=== PATIENT | female | born 1995 | race Caucasian/White ===

== ENCOUNTER → 2017-06-08 | Outpatient (CLI) | payer SELFPAY ==
[2017-06-08 14:50] LABS: CH 31.6; CHCM 33.8; Glucose 98 mg/dL (74-99); HDW 2.14; HGB 12.3 gm/dL (11.4-16.0); MCH 32.1 pg (25.0-35.0); MCHC 34.2 g/dL (31.0-37.0); MCV 93.8 fL (80.0-100.0); Mean Platelet Volume 7.5; Non-African American GFR(MDRD) >60 (>60 ml/min/1.73 sqM); RBC 3.84 m/uL (3.80-5.40); RDW 13.9 % (11.5-15.5); WBC 10.6 k/uL (3.8-10.6)
[2017-06-08 15:21] LABS: Hepatitis B Surface Ag Index 0.06
[2017-06-08 20:32] LABS: Treponemal Ab Non-Reactive (Non-Reactive)
[2017-06-09 03:03] LABS: Toxoplasma Antibody (IgG) <3.0 IU/mL (<7.2)
== END | disposition home or self-care (01) ==
LOC: LABWHC1 14:03
PROVIDERS: ATTEND Obstetrics & Gynecology
DX: O26.812 Pregnancy related exhaustion and fatigue, second trimester (principal); Z3A.00 Weeks of gestation of pregnancy not specified
CPT/HCPCS: 36415; 82565; 82947; 85027; 86762; 86777; 86778; 86780; 86850; 86900; 86901; 87340; 87390

== ENCOUNTER 2017-09-09 19:43 | Outpatient (CLI) | payer SELFPAY ==
[2017-09-09] MEDS ORDERED: ACETAMINOPHEN TAB 325 MG TAB PO PRN (20:05)
[2017-09-09] MEDS: LACTATED RINGERS 1,000 ML IV SCH ×2 (20:23→21:38)
[2017-09-09 23:38] VITALS: BP 130/79; PULSE 124; RESP 18; TEMP 99
--- NOTE | 2017-11-07 06:45 | P.MSEPDOC ---
Presenting Problems - Arrival Data Date of Arrival on Unit: 09/09/17 Time of Arrival on Unit: 19:43 Mode of Transport: Wheelchair Medical History - Information : 4 Para: 3 Term: 2 : 0 Abortions: Spontaneous or Elective: 1 Number of Living Children: 2 - Gestational Age Gestational Age by PHILOMENA (wks/days): 33 Weeks and 1 Days Vital Signs - Temperature Temperature: 99 F Temperature Source: Oral - Pulse Right Brachial Pulse Rate: 124 Pulse Assessment Method: Automatic Cuff - Respirations Respiratory Rate: 18 Oxygen Delivery Method: Room Air O2 Sat by Pulse Oximetry: 98 - Blood Pressure Right Arm Blood Pressure: 130/79 Blood Pressure Mean: 96 Blood Pressure Source: Automatic Cuff Medical Screen Scoring (Post) - Cervical Exam Dilation: Exam Deferred Effacement: Exam Deferred - Uterine Contractions Frequency: N/A Duration: N/A Intensity: N/A - Maternal Vital Signs Maternal Temperature: N/A Maternal Blood Pressure: N/A Signs of Preeclampsia: N/A Maternal Respirations: N/A - Assessment Heart Rate: 155 Heart Rate - NICHD Category: Category I (Normal) = 0 NST: Reactive Position: N/A Station: N/A - Total Score Total Score (Post): 0 - Post Treatment Level of Risk Post Treatment Level of Risk: N/A Physician Notification (Post) - Physician Notified Physician Notified Date: 09/09/17 Physician Notified Time: 19:59 Spoke With: Denzel Calvillo Order Received: Yes - Notification Comment Comment: IV hydration, tylenol Disposition - Disposition OB Disposition: Discharge to home Discharge Date: 09/09/17 Discharge Time: 21:00 I agree with the RN Medical Screening Exam: No Risk & Benefit of care provided described in d/c instruction: No Diagnosis: RELATED CONDITIONS, UNSP, UNSPECIFIED TRIMESTER ( Insufficient information is provided to me to complete this form.)
== END 2017-09-09 21:00 | disposition home or self-care (01) ==
LOC: FBPOP 19:43
PROVIDERS: ATTEND Obstetrics & Gynecology
DX: O26.93 Pregnancy related conditions, unspecified, third trimester (principal); Z3A.33 33 weeks gestation of pregnancy
CPT/HCPCS: 59025; 96360; 99214

== ENCOUNTER 2017-10-19 09:23 | Outpatient (CLI) | payer SELFPAY ==
[2017-10-19 10:25] VITALS: BP 122/84; PULSE 111; RESP 20; TEMP 98.5
--- NOTE | 2017-10-19 19:33 | P.MSEPDOC ---
Presenting Problems - Arrival Data Date of Arrival on Unit: 10/19/17 Time of Arrival on Unit: 09:28 Mode of Transport: Wheelchair - Complaint OB-Reason for Admission/Chief Complaint: Possible Onset of Labor Comment: C/O ctxs since 0700 Medical History - Information : 4 Para: 3 Term: 2 : 0 Abortions: Spontaneous or Elective: 1 Number of Living Children: 2 - Gestational Age Gestational Age by PHILOMENA (wks/days): 38 Weeks and 6 Days - History Complications: No Care Sexually Transmitted Diseases: HSV Review of Systems - Review of Systems Constitutional: No problems Breast: No problems ENT: No problems Cardiovascular: No problems Respiratory: No problems Gastrointestinal: No problems Genitourinary: No problems Musculoskeletal: No problems Neurological: No problems Skin: No problems Vital Signs - Temperature Temperature: 98.5 F Temperature Source: Oral - Pulse Right Brachial Pulse Rate: 111 Pulse Assessment Method: Automatic Cuff - Respirations Respiratory Rate: 20 Oxygen Delivery Method: Room Air - Blood Pressure Right Arm Blood Pressure: 122/84 Blood Pressure Mean: 96 Blood Pressure Source: Automatic Cuff Medical Screen Scoring (Pre) - Cervical Exam Dilation: 4-7 cm = 2 Effacement: More than 50% = 2 Membranes: Intact - Maternal Vital Signs Maternal Temperature: N/A Maternal Blood Pressure: N/A Signs of Preeclampsia: Headache = 1, Nausea/Vomiting = 1 Maternal Respirations: N/A - Pain Assessment Pain Location and Character: Back, Abdomen Pain Scale Used: Numeric (1 - 10) Pain Intensity: 4 Pain Management Goal: 8 Pain Description: Aching, Cramping Pain Radiation Location: n/a Pain Frequency: Constant Pain Duration Units: Hours Pain Behavior: Vocalization Pain Aggravating Factors: None - Maternal Trauma Maternal Trauma: N/A - Assessment Baseline FHR: 135 Heart Rate - NICHD Category: Category I (Normal) = 0 NST: Reactive Position: N/A Station: N/A - Total Score Total Score (Pre): 6 - Level of Risk Level of Risk: Medium (6-9) Physician Notification (Pre) - Physician Notified Physician Notified Date: 10/19/17 Physician Notified Time: 10:10 Physician/Practitioner Notifed:: Cameron Spoke With: Cameron New Order Received: Yes - Notification Comment Comment: Order received to complete SVE in 1 hour and to call with results. Medical Screen Scoring (Post) - Cervical Exam Dilation: 1-3 cm = 1 Effacement: More than 50% = 2 Membranes: Intact - Uterine Contractions Frequency: N/A - Maternal Vital Signs Maternal Temperature: N/A Maternal Blood Pressure: N/A Signs of Preeclampsia: Headache = 1, Nausea/Vomiting = 1 Maternal Respirations: N/A - Pain Assessment Pain Scale Used: Numeric (1 - 10) Pain Intensity: 0 Pain Management Goal: 7 - Maternal Trauma Maternal Trauma: N/A - Assessment Heart Rate: 140 Heart Rate - NICHD Category: Category I (Normal) = 0 NST: Reactive Position: N/A Station: N/A - Total Score Total Score (Post): 5 - Post Treatment Level of Risk Post Treatment Level of Risk: Low (0-5) Physician Notification (Post) - Physician Notified Physician Notified Date: 10/19/17 Physician Notified Time: 11:25 Physician/Practitioner Notified:: Cameron Calvillo Order Received: Yes - Notification Comment Comment: Discharge home Disposition - Disposition OB Disposition: Discharge to home Discharge Date: 10/19/17 Discharge Time: 11:25 I agree with the RN Medical Screening Exam: Yes Risk & Benefit of care provided described in d/c instruction: Yes Diagnosis: FALSE LABOR AT OR AFTER 37 COMPLETED WEEKS OF GESTATION
== END 2017-10-19 11:30 | disposition home or self-care (01) ==
LOC: FBPOP 09:23
PROVIDERS: ATTEND Obstetrics & Gynecology
DX: O47.1 False labor at or after 37 completed weeks of gestation (principal); Z3A.38 38 weeks gestation of pregnancy
CPT/HCPCS: 59025; 99213

== ENCOUNTER 2017-12-07 13:30 | Emergency (ER) | payer OTHER ==
[2017-12-07 13:35] VITALS: RESP 18
[2017-12-07] MEDS ORDERED: ONDANSETRON 4 MG/2 ML VIAL IVP STA (13:47)
[2017-12-07] MEDS ORDERED: SODIUM CHLORIDE 0.9% 500 ML IV STA (13:47)
[2017-12-07] MEDS ORDERED: SODIUM CHLORIDE 0.9% 1,000 ML IV STA (13:47)
[2017-12-07] MEDS ORDERED: KETOROLAC 30 MG/ML 1 ML VIAL IVP STA (14:24)
[2017-12-07] MEDS ORDERED: METOCLOPRAMIDE 5 MG/ML 2 ML VIAL IVP STA (14:24)
--- NOTE | 2017-12-07 14:30 | ED ---
Nausea/Vomiting/Diarrhea HPI - General Chief complaint: Nausea/Vomiting/Diarrhea Stated complaint: vomiting Time Seen by Provider: 12/07/17 13:47 Source: patient, RN notes reviewed Mode of arrival: ambulatory Limitations: no limitations - History of Present Illness Initial comments: 22-year-old female presents emergency Department with chief complaint abdominal pain, nausea vomiting diarrhea. Patient states symptoms started abruptly. Patient states she has diffuse abdominal pain no localized abdominal pain. Patient is 1 month . Patient denies any fever, chills, headache or dizziness. Patient denies any sick contacts denies any dysuria or hematuria. She has no vaginal bleeding or vaginal discharge at this time. Patient denies flank pain states nothing is making her symptoms are better at this time. - Related Data Previous Rx's Medication Instructions Recorded Ondansetron Odt [Zofran Odt] 4 mg PO Q8HR PRN #10 tab 12/07/17 Allergies Allergy/AdvReac Type Severity Reaction Status Date / Time No Known Allergies Allergy Verified 12/07/17 14:12 Review of Systems ROS Statement: Those systems with pertinent positive or pertinent negative responses have been documented in the HPI. ROS Other: All systems not noted in ROS Statement are negative. Past Medical History Past Medical History: No Reported History Additional Past Medical History / Comment(s): anxiety, depression History of Any Multi-Drug Resistant Organisms: None Reported Past Surgical History: No Surgical Hx Reported Additional Past Surgical History / Comment(s): Patient has had a D&C. Past Anesthesia/Blood Transfusion Reactions: No Reported Reaction Past Psychological History: Anxiety, Depression Smoking Status: Current every day smoker Past Alcohol Use History: None Reported Past Drug Use History: None Reported - Past Family History Mother Family Medical History: No Reported History General Exam Limitations: no limitations General appearance: alert, in no apparent distress Head exam: Present: atraumatic, normocephalic, normal inspection Neck exam: Present: normal inspection, full ROM. Absent: tenderness, meningismus, lymphadenopathy Respiratory exam: Present: normal lung sounds bilaterally. Absent: respiratory distress, wheezes, rales, rhonchi, stridor Cardiovascular Exam: Present: regular rate, normal rhythm, normal heart sounds. Absent: systolic murmur, diastolic murmur, rubs, gallop, clicks GI/Abdominal exam: Present: soft, tenderness (Diffuse mild tenderness), normal bowel sounds. Absent: distended, guarding, rebound, rigid Back exam: Absent: CVA tenderness (R), CVA tenderness (L) Skin exam: Present: warm, dry, intact, normal color. Absent: rash Course Vital Signs 12/07/17 12/07/17 13:33 15:08 Temperature 98.9 F 100.3 F H Pulse Rate 101 H 74 Respiratory 18 18 Rate Blood Pressure 122/93 115/67 O2 Sat by Pulse 100 95 Oximetry Medical Decision Making - Medical Decision Making 22-year-old female presented from for nausea vomiting diarrhea. Patient is well -hydrated emergency department to have liters given antiemetics. She states that she does feel improved at this time symptoms have essentially resolved. Patient's labwork reviewed. Patient will be discharged at this time patient agrees to plan. - Lab Data Result diagrams: 12/07/17 13:51 12/07/17 13:51 Lab Results 12/07/17 12/07/17 12/07/17 Range/Units 13:51 13:51 15:00 WBC 9.6 (3.8-10.6) k/uL RBC 4.91 (3.80-5.40) m/uL Hgb 14.4 (11.4-16.0) gm/dL Hct 43.0 (34.0-46.0) % MCV 87.5 (80.0-100.0) fL MCH 29.3 (25.0-35.0) pg MCHC 33.5 (31.0-37.0) g/dL RDW 14.1 (11.5-15.5) % Plt Count 100 L (150-450) k/uL Neutrophils % 87 % Lymphocytes % 5 % Monocytes % 6 % Eosinophils % 1 % Basophils % 0 % Neutrophils # 8.3 H (1.3-7.7) k/uL Lymphocytes # 0.5 L (1.0-4.8) k/uL Monocytes # 0.5 (0-1.0) k/uL Eosinophils # 0.1 (0-0.7) k/uL Basophils # 0.0 (0-0.2) k/uL Sodium 143 (137-145) mmol/L Potassium 4.1 (3.5-5.1) mmol/L Chloride 107 (98-107) mmol/L Carbon Dioxide 21 L (22-30) mmol/L Anion Gap 15 mmol/L BUN 11 (7-17) mg/dL Creatinine 0.87 (0.52-1.04) mg/dL Est GFR (CKD-EPI)AfAm >90 (>60 ml/min/1.73 sqM) Est GFR (CKD-EPI)NonAf >90 (>60 ml/min/1.73 sqM) Glucose 122 H (74-99) mg/dL Calcium 10.3 H (8.4-10.2) mg/dL Total Bilirubin 0.9 (0.2-1.3) mg/dL AST 25 (14-36) U/L ALT 37 (9-52) U/L Alkaline Phosphatase 65 (38-126) U/L Total Protein 7.7 (6.3-8.2) g/dL Albumin 4.8 (3.5-5.0) g/dL Amylase 44 (30-110) U/L Lipase 111 (23-300) U/L Urine Color Yellow Urine Appearance Clear (Clear) Urine pH 7.5 (5.0-8.0) Ur Specific [place] 1.024 (1.001-1.035) Urine Protein 1+ H (Negative) Urine Glucose (UA) Negative (Negative) Urine Ketones 2+ H (Negative) Urine Blood Negative (Negative) Urine Nitrite Negative (Negative) Urine Bilirubin Negative (Negative) Urine Urobilinogen 2.0 (<2.0) mg/dL Ur Leukocyte Esterase Negative (Negative) Urine RBC <1 (0-5) /hpf Urine WBC 1 (0-5) /hpf Ur Squamous Epith Cells 2 (0-4) /hpf Urine Mucus Moderate H (None) /hpf Disposition Clinical Impression: Gastroenteritis Disposition: HOME SELF-CARE Condition: Stable Instructions: Gastroenteritis (ED) Additional Instructions: Please return to the Emergency Department if symptoms worsen or any other concerns. Prescriptions: Ondansetron Odt [Zofran Odt] 4 mg PO Q8HR PRN #10 tab PRN Reason: Nausea Referrals: None,Stated [Primary Care Provider] - 1-2 days Time of Disposition: 15:40
[2017-12-07 14:32] LABS: ALT 37 U/L (9-52); AST 25 U/L (14-36); Albumin 4.8 g/dL (3.5-5.0); Alkaline Phosphatase 65 U/L (38-126); Amylase 44 U/L (30-110); Anion Gap 15 mmol/L; Blood Urea Nitrogen 11 mg/dL (7-17); Calcium 10.3 mg/dL (8.4-10.2); Carbon Dioxide 21 mmol/L (22-30); Chloride 107 mmol/L (98-107); Glucose 122 mg/dL (74-99); Lipase 111 U/L (23-300); Potassium 4.1 mmol/L (3.5-5.1); Sodium 143 mmol/L (137-145); Total Bilirubin 0.9 mg/dL (0.2-1.3); Total Protein 7.7 g/dL (6.3-8.2)
[2017-12-07 14:42] LABS: Basophils % (A) 0 %; Eosinophils # (A) 0.1 k/uL (0-0.7); Eosinophils % (A) 1 %; HGB 14.4 gm/dL (11.4-16.0); Lymphocytes # (A) 0.5 k/uL (1.0-4.8); Lymphocytes % (A) 5 %; MCH 29.3 pg (25.0-35.0); MCHC 33.5 g/dL (31.0-37.0); MCV 87.5 fL (80.0-100.0); Mean Platelet Volume 8.3; Monocytes # (A) 0.5 k/uL (0-1.0); Monocytes % (A) 6 %; Neutrophils # (A) 8.3 k/uL (1.3-7.7); Neutrophils % (A) 87 %; Platelet Count 100 k/uL (150-450); RBC 4.91 m/uL (3.80-5.40); RDW 14.1 % (11.5-15.5); WBC 9.6 k/uL (3.8-10.6)
[2017-12-07] MEDS ORDERED: SODIUM CHLORIDE 0.9% 1,000 ML IV ONE (14:56)
[2017-12-07 15:09] VITALS: BP 115/67; PULSE 74; TEMP 100.3
[2017-12-07] MEDS ORDERED: ACETAMINOPHEN TAB 325 MG TAB PO STA (15:09)
[2017-12-07 15:21] LABS: Appearance,Urine Clear (Clear); Bilirubin,Urine Negative (Negative); Blood,Urine Negative (Negative); Color,Urine Yellow; Glucose,Urine (UA) Negative (Negative); Ketones,Urine 2+ (Negative); Leukocyte Esterase,Urine Negative (Negative); Mucus,Urine Moderate /hpf; Nitrite,Urine Negative (Negative); PH, Urine 7.5 (5.0-8.0); Protein,Urine 1+ (Negative); RBC,Urine <1 /hpf (0-5); Specific Gravity,Urine 1.024 (1.001-1.035); Squamous Epithelial Cell,Urine 2 /hpf (0-4); WBC,Urine 1 /hpf (0-5)
== END 2017-12-07 15:47 | disposition home or self-care (01) ==
LOC: EC 13:30
DX: K52.9 Noninfective gastroenteritis and colitis, unspecified (principal); F17.200 Nicotine dependence, unspecified, uncomplicated
CPT/HCPCS: 99284; 96374; 96375 ×2; 96361; 36415; 80053; 82150; 83690; 85025; 81001; J2765; J2405; J1885

== ENCOUNTER 2018-02-22 14:50 | Emergency (ER) | payer OTHER ==
[2018-02-22 15:39] VITALS: BP 134/86; PULSE 95; RESP 16; TEMP 98
[2018-02-22 16:09] LABS: Appearance,Urine Cloudy (Clear); Bacteria,Urine Moderate /hpf; Bilirubin,Urine Negative (Negative); Blood,Urine Small (Negative); Color,Urine Yellow; Glucose,Urine (UA) Negative (Negative); Ketones,Urine Trace (Negative); Leukocyte Esterase,Urine Large (Negative); Mucus,Urine Occasional /hpf; Nitrite,Urine Positive (Negative); PH, Urine 6.5 (5.0-8.0); Protein,Urine 1+ (Negative); RBC,Urine 15 /hpf (0-5); Specific Gravity,Urine 1.008 (1.001-1.035); Squamous Epithelial Cell,Urine 3 /hpf (0-4); Urobilinogen,Urine <2.0 mg/dL (<2.0); WBC,Urine 138 /hpf (0-5)
--- NOTE | 2018-02-22 16:41 | ED ---
Female Urogenital HPI - General Chief complaint: Urogenital Stated complaint: back pain/painful urination Time Seen by Provider: 02/22/18 16:24 Source: patient, RN notes reviewed Mode of arrival: ambulatory Limitations: no limitations - History of Present Illness Initial comments: This is a 22-year-old female presents to the emergency department with chief complaint of painful urination. Patient states on Tuesday she began having dysuria and increased frequency of urination. She states that yesterday she developed bilateral flank pain. She states that she has felt febrile but has not had a thermometer to record her temperature. Denies chills, nausea or vomiting, abdominal pain, constipation or diarrhea. Denies seeing any blood in her urine. Complains of suprapubic discomfort during urination. - Related Data Previous Rx's Medication Instructions Recorded Sulfamethox-Tmp 800-160Mg [Bactrim 1 tab PO Q12HR #20 tab 02/22/18 DS 800-160 mg] Allergies Allergy/AdvReac Type Severity Reaction Status Date / Time No Known Allergies Allergy Verified 02/22/18 15:39 Review of Systems ROS Statement: Those systems with pertinent positive or pertinent negative responses have been documented in the HPI. ROS Other: All systems not noted in ROS Statement are negative. Past Medical History Past Medical History: No Reported History Additional Past Medical History / Comment(s): anxiety, depression History of Any Multi-Drug Resistant Organisms: None Reported Past Surgical History: No Surgical Hx Reported Additional Past Surgical History / Comment(s): Patient has had a D&C. Past Anesthesia/Blood Transfusion Reactions: No Reported Reaction Past Psychological History: Anxiety, Depression Smoking Status: Current every day smoker Past Alcohol Use History: None Reported Past Drug Use History: None Reported - Past Family History Mother Family Medical History: No Reported History General Exam - General Exam Comments Initial Comments: General: Awake and alert, well-developed; in no apparent distress. HEENT: Head atraumatic, normocephalic. Pupils are equal, round and reactive to light. Extraocular movements intact. Oropharynx moist without erythema or exudate. Neck: Supple. Normal ROM. Cardiovascular: Regular rate and rhythm. No murmurs, rubs or gallops. Chest symmetrical. Respiratory: Lungs clear to auscultation bilaterally. No wheezes, rales or rhonchi. Normal respiratory effort with no use of accessory muscles. Abdomen: Soft, non-tender, non-distended. No rigidity, rebound or guarding. Normal bowel sounds in all 4 quadrants. No bilateral CVA tenderness on palpation. Musculoskeletal: Normal ROM, no tenderness bilateral upper and lower extremities. Ambulating normally. Skin: [place], warm and dry without rashes or lesions. Neurological: Alert and oriented x3. CN II-XII grossly intact. Speech is fluent and answers are appropriate. No focal neuro deficits. Psychiatric: Normal mood and affect. No overt signs of depression or anxiety noted. Limitations: no limitations Course Vital Signs 02/22/18 15:37 Temperature 98.0 F Pulse Rate 95 Respiratory 16 Rate Blood Pressure 134/86 O2 Sat by Pulse 100 Oximetry Medical Decision Making - Medical Decision Making This is a 22-year-old female presents to the emergency department with chief complaint of dysuria. She also complains of increased frequency and suprapubic discomfort during urination. She also complains of bilateral flank pain. Vital signs are stable and patient is afebrile. She denies abdominal pain, nausea or vomiting. UA was obtained and revealed no trace ketones, small blood , positive nitrites, large leukocyte esterase, 15 red blood cells and 138 white blood cells, moderate bacteria. Patient will be treated for acute cystitis with Bactrim. Return parameters were discussed. Patient will be discharged home at this time. She is in agreement with plan and voices understanding. All questions answered. - Lab Data Lab Results 02/22/18 Range/Units 15:40 Urine Color Yellow Urine Appearance Cloudy H (Clear) Urine pH 6.5 (5.0-8.0) Ur Specific [place] 1.008 (1.001-1.035) Urine Protein 1+ H (Negative) Urine Glucose (UA) Negative (Negative) Urine Ketones Trace H (Negative) Urine Blood Small H (Negative) Urine Nitrite Positive H (Negative) Urine Bilirubin Negative (Negative) Urine Urobilinogen <2.0 (<2.0) mg/dL Ur Leukocyte Esterase Large H (Negative) Urine RBC 15 H (0-5) /hpf Urine WBC 138 H (0-5) /hpf Urine WBC Clumps Many H (None) /hpf Ur Squamous Epith Cells 3 (0-4) /hpf Urine Bacteria Moderate H (None) /hpf Urine Mucus Occasional H (None) /hpf Disposition Clinical Impression: Urinary tract infection Disposition: HOME SELF-CARE Condition: Good Instructions: Urinary Tract Infection in Women (ED) Additional Instructions: Please take medications as prescribed. Please follow up with primary care provider within 1-2 days. Return to emergency department if symptoms should worsen or any concerns arise. Prescriptions: Sulfamethox-Tmp 800-160Mg [Bactrim DS 800-160 mg] 1 tab PO Q12HR #20 tab Is patient prescribed a controlled substance at d/c from ED?: No Referrals: None,Stated [Primary Care Provider] - 1-2 days Time of Disposition: 16:41
[2018-02-22] MEDS ORDERED: SULFAMETHOX-TMP 800-160MG 1 EACH TAB PO STA (16:49)
== END 2018-02-22 16:45 | disposition home or self-care (01) ==
LOC: EC 14:50
DX: N30.00 Acute cystitis without hematuria (principal); F17.200 Nicotine dependence, unspecified, uncomplicated
CPT/HCPCS: 81001; 99284

== ENCOUNTER 2018-02-24 02:25 | Emergency (ER) | payer OTHER ==
[2018-02-24 02:30] VITALS: RESP 18
[2018-02-24] MEDS ORDERED: SODIUM CHLORIDE 0.9% 1,000 ML IV ONE (02:57)
[2018-02-24 03:07] LABS: Basophils % (A) 0 %; Eosinophils # (A) 0.1 k/uL (0-0.7); Eosinophils % (A) 2 %; HCT 40.9 % (34.0-46.0); HGB 13.9 gm/dL (11.4-16.0); Lymphocytes # (A) 0.5 k/uL (1.0-4.8); Lymphocytes % (A) 9 %; MCH 30.6 pg (25.0-35.0); MCV 90.2 fL (80.0-100.0); Mean Platelet Volume 6.9; Monocytes # (A) 0.4 k/uL (0-1.0); Monocytes % (A) 7 %; Neutrophils # (A) 4.7 k/uL (1.3-7.7); Neutrophils % (A) 80 %; Platelet Count 164 k/uL (150-450); RBC 4.53 m/uL (3.80-5.40); WBC 5.9 k/uL (3.8-10.6)
[2018-02-24 03:16] LABS: ALT 42 U/L (9-52); AST 30 U/L (14-36); Albumin 4.1 g/dL (3.5-5.0); Alkaline Phosphatase 49 U/L (38-126); Amylase 33 U/L (30-110); Anion Gap 13 mmol/L; Blood Urea Nitrogen 10 mg/dL (7-17); Calcium 9.4 mg/dL (8.4-10.2); Carbon Dioxide 23 mmol/L (22-30); Chloride 107 mmol/L (98-107); Glucose 96 mg/dL (74-99); Lipase 45 U/L (23-300); Potassium 3.7 mmol/L (3.5-5.1); Sodium 143 mmol/L (137-145); Total Bilirubin 0.2 mg/dL (0.2-1.3); Total Protein 6.6 g/dL (6.3-8.2)
[2018-02-24 03:27] LABS: Appearance,Urine Turbid (Clear); Bacteria,Urine Few /hpf; Bilirubin,Urine Negative (Negative); Blood,Urine Moderate (Negative); Color,Urine Yellow; Glucose,Urine (UA) Negative (Negative); Ketones,Urine 1+ (Negative); Leukocyte Esterase,Urine Large (Negative); Mucus,Urine Rare /hpf; Nitrite,Urine Negative (Negative); Protein,Urine 3+ (Negative); RBC,Urine 133 /hpf (0-5); Specific Gravity,Urine 1.021 (1.001-1.035); Squamous Epithelial Cell,Urine 1 /hpf (0-4); Urobilinogen,Urine <2.0 mg/dL (<2.0); WBC,Urine >182 /hpf (0-5)
[2018-02-24] MEDS ORDERED: cefTRIAXone IN SWFI 1,000 MG/10 ML SYRINGE IVP STA (03:45)
--- NOTE | 2018-02-24 04:36 | CT ---
EXAM: CT Abdomen and Pelvis Without Intravenous Contrast CLINICAL HISTORY: Pain TECHNIQUE: Axial computed tomography images of the abdomen and pelvis without intravenous contrast. CTDI is mGy and DLP is mGy-cm. This CT exam was performed using one or more of the following dose reduction techniques: automated exposure control, adjustment of the mA and/or kV according to patient size, and/or use of iterative reconstruction technique. COMPARISON: No relevant prior studies available. FINDINGS: Lung bases: Unremarkable. No mass. No consolidation. ABDOMEN: Liver: Unremarkable. Gallbladder and bile ducts: Unremarkable. No calcified stones. No ductal dilation. Pancreas: Unremarkable. No ductal dilation. Spleen: Unremarkable. No splenomegaly. Adrenals: Unremarkable. No mass. Kidneys and ureters: Unremarkable. No obstructing stones. No hydronephrosis. Stomach and bowel: Unremarkable. No obstruction. No mucosal thickening. PELVIS: Appendix: No findings to suggest acute appendicitis. Bladder: Not completely distended bladder wall appears be somewhat thick possible cholecystitis cannot be excluded. Reproductive: Unremarkable as visualized. IUD appears be within the endometrial canal. ABDOMEN and PELVIS: Intraperitoneal space: Unremarkable. No free air. No significant fluid collection. Bones/joints: No acute fracture. No dislocation. Soft tissues: Unremarkable. Vasculature: Unremarkable. No abdominal aortic aneurysm. Lymph nodes: Unremarkable. No enlarged lymph nodes. IMPRESSION: No acute abnormality demonstrated in the abdomen or pelvis. The bladder wall appears be thickened although this incompletely distended. Clinical correlation is required.
[2018-02-24] MEDS ORDERED: CIPROFLOXACIN HCL 500 MG TAB PO STA (05:15)
[2018-02-24] MEDS ORDERED: KETOROLAC 30 MG/ML 1 ML VIAL IVP STA (05:15)
[2018-02-24] MEDS ORDERED: PHENAZOPYRIDINE 100 MG TAB PO STA (05:15)
--- NOTE | 2018-02-24 05:16 | ED ---
Abdominal Pain HPI - General Chief Complaint: Abdominal Pain Stated Complaint: back pain Time Seen by Provider: 02/24/18 02:57 Source: patient, RN notes reviewed, old records reviewed Mode of arrival: ambulatory Limitations: no limitations - History of Present Illness Initial Comments: Patient is a 22 year old female with CC of dysuria and back pain. She was diagnosed with UTI and been taking antibiotics for one day. REports nausea, vomiting, fever and chills. - Related Data Previous Rx's Medication Instructions Recorded Sulfamethox-Tmp 800-160Mg [Bactrim 1 tab PO Q12HR #20 tab 02/22/18 DS 800-160 mg] Ciprofloxacin HCl [Cipro] 500 mg PO Q12HR 10 Days tab 02/24/18 Phenazopyridine [Pyridium] 200 mg PO TID #9 tablet 02/24/18 Allergies Allergy/AdvReac Type Severity Reaction Status Date / Time No Known Allergies Allergy Verified 02/22/18 15:39 Review of Systems ROS Statement: Those systems with pertinent positive or pertinent negative responses have been documented in the HPI. ROS Other: All systems not noted in ROS Statement are negative. Past Medical History Past Medical History: No Reported History Additional Past Medical History / Comment(s): anxiety, depression History of Any Multi-Drug Resistant Organisms: None Reported Past Surgical History: No Surgical Hx Reported Additional Past Surgical History / Comment(s): Patient has had a D&C. Past Anesthesia/Blood Transfusion Reactions: No Reported Reaction Past Psychological History: Anxiety, Depression Smoking Status: Current every day smoker Past Alcohol Use History: None Reported Past Drug Use History: None Reported - Past Family History Mother Family Medical History: No Reported History General Exam - General Exam Comments Initial Comments: 22 year old female, alert oriented. No distress. Limitations: no limitations General appearance: alert, in no apparent distress Head exam: Present: atraumatic, normocephalic, normal inspection Eye exam: Present: normal appearance, PERRL, EOMI. Absent: scleral icterus, conjunctival injection, periorbital swelling ENT exam: Present: normal exam, mucous membranes moist Neck exam: Present: normal inspection. Absent: tenderness, meningismus, lymphadenopathy Respiratory exam: Present: normal lung sounds bilaterally. Absent: respiratory distress, wheezes, rales, rhonchi, stridor Cardiovascular Exam: Present: regular rate, normal rhythm, normal heart sounds. Absent: systolic murmur, diastolic murmur, rubs, gallop, clicks GI/Abdominal exam: Present: soft, tenderness (suprapubic and left cva), normal bowel sounds. Absent: distended, guarding, rebound, rigid Extremities exam: Present: normal inspection, full ROM, normal capillary refill. Absent: tenderness, pedal edema, joint swelling, calf tenderness Back exam: Present: normal inspection Neurological exam: Present: alert, oriented X3, CN II-XII intact Psychiatric exam: Present: normal affect, normal mood Skin exam: Present: warm, dry, intact, normal color. Absent: rash Course Vital Signs 02/24/18 02/24/18 02/24/18 02:26 03:30 05:48 Temperature 98.8 F 98.4 F 98.0 F Pulse Rate 125 H 78 88 Respiratory 18 18 18 Rate Blood Pressure 125/81 134/83 124/75 O2 Sat by Pulse 98 100 100 Oximetry Medical Decision Making - Medical Decision Making 22 year old presents with dysuria, left back pain, fevers, chills and vomting. LAbs show evidence of UTI with hematuria. She was started on bactrim 2 days ago with no relief. Urine culture was not obtained at that time. Did give patient rocephin, was concern for possible stone due to pain and tenderness of left CVA. Patient given CT scan without contrast, no stones, evidence of bladder thickening. Patient felt much better. Will DC with different antibiotic and PCP follow up. - Lab Data Result diagrams: 02/24/18 02:51 02/24/18 02:51 Lab Results 02/24/18 02/24/18 02/24/18 Range/Units 02:51 02:51 02:51 WBC 5.9 (3.8-10.6) k/uL RBC 4.53 (3.80-5.40) m/uL Hgb 13.9 (11.4-16.0) gm/dL Hct 40.9 (34.0-46.0) % MCV 90.2 (80.0-100.0) fL MCH 30.6 (25.0-35.0) pg MCHC 34.0 (31.0-37.0) g/dL RDW 13.0 (11.5-15.5) % Plt Count 164 (150-450) k/uL Neutrophils % 80 % Lymphocytes % 9 % Monocytes % 7 % Eosinophils % 2 % Basophils % 0 % Neutrophils # 4.7 (1.3-7.7) k/uL Lymphocytes # 0.5 L (1.0-4.8) k/uL Monocytes # 0.4 (0-1.0) k/uL Eosinophils # 0.1 (0-0.7) k/uL Basophils # 0.0 (0-0.2) k/uL Sodium 143 (137-145) mmol/L Potassium 3.7 (3.5-5.1) mmol/L Chloride 107 (98-107) mmol/L Carbon Dioxide 23 (22-30) mmol/L Anion Gap 13 mmol/L BUN 10 (7-17) mg/dL Creatinine 0.90 (0.52-1.04) mg/dL Est GFR (CKD-EPI)AfAm >90 (>60 ml/min/1.73 sqM) Est GFR (CKD-EPI)NonAf >90 (>60 ml/min/1.73 sqM) Glucose 96 (74-99) mg/dL Calcium 9.4 (8.4-10.2) mg/dL Total Bilirubin 0.2 (0.2-1.3) mg/dL AST 30 (14-36) U/L ALT 42 (9-52) U/L Alkaline Phosphatase 49 (38-126) U/L Total Protein 6.6 (6.3-8.2) g/dL Albumin 4.1 (3.5-5.0) g/dL Amylase 33 (30-110) U/L Lipase 45 (23-300) U/L Urine Color Yellow Urine Appearance Turbid H (Clear) Urine pH 7.0 (5.0-8.0) Ur Specific [place] 1.021 (1.001-1.035) Urine Protein 3+ H (Negative) Urine Glucose (UA) Negative (Negative) Urine Ketones 1+ H (Negative) Urine Blood Moderate H (Negative) Urine Nitrite Negative (Negative) Urine Bilirubin Negative (Negative) Urine Urobilinogen <2.0 (<2.0) mg/dL Ur Leukocyte Esterase Large H (Negative) Urine RBC 133 H (0-5) /hpf Urine WBC >182 H (0-5) /hpf Urine WBC Clumps Few H (None) /hpf Ur Squamous Epith Cells 1 (0-4) /hpf Urine Bacteria Few H (None) /hpf Urine Mucus Rare H (None) /hpf Urine HCG, Qual (Not Detectd) 02/24/18 Range/Units 02:51 WBC (3.8-10.6) k/uL RBC (3.80-5.40) m/uL Hgb (11.4-16.0) gm/dL Hct (34.0-46.0) % MCV (80.0-100.0) fL MCH (25.0-35.0) pg MCHC (31.0-37.0) g/dL RDW (11.5-15.5) % Plt Count (150-450) k/uL Neutrophils % % Lymphocytes % % Monocytes % % Eosinophils % % Basophils % % Neutrophils # (1.3-7.7) k/uL Lymphocytes # (1.0-4.8) k/uL Monocytes # (0-1.0) k/uL Eosinophils # (0-0.7) k/uL Basophils # (0-0.2) k/uL Sodium (137-145) mmol/L Potassium (3.5-5.1) mmol/L Chloride (98-107) mmol/L Carbon Dioxide (22-30) mmol/L Anion Gap mmol/L BUN (7-17) mg/dL Creatinine (0.52-1.04) mg/dL Est GFR (CKD-EPI)AfAm (>60 ml/min/1.73 sqM) Est GFR (CKD-EPI)NonAf (>60 ml/min/1.73 sqM) Glucose (74-99) mg/dL Calcium (8.4-10.2) mg/dL Total Bilirubin (0.2-1.3) mg/dL AST (14-36) U/L ALT (9-52) U/L Alkaline Phosphatase (38-126) U/L Total Protein (6.3-8.2) g/dL Albumin (3.5-5.0) g/dL Amylase (30-110) U/L Lipase (23-300) U/L Urine Color Urine Appearance (Clear) Urine pH (5.0-8.0) Ur Specific [place] (1.001-1.035) Urine Protein (Negative) Urine Glucose (UA) (Negative) Urine Ketones (Negative) Urine Blood (Negative) Urine Nitrite (Negative) Urine Bilirubin (Negative) Urine Urobilinogen (<2.0) mg/dL Ur Leukocyte Esterase (Negative) Urine RBC (0-5) /hpf Urine WBC (0-5) /hpf Urine WBC Clumps (None) /hpf Ur Squamous Epith Cells (0-4) /hpf Urine Bacteria (None) /hpf Urine Mucus (None) /hpf Urine HCG, Qual Not Detected (Not Detectd) - Radiology Data Radiology results: report reviewed No acute abdomen or pelvis on CT. Evidnece of thickened bladder. Disposition Clinical Impression: UTI (urinary tract infection) Disposition: HOME SELF-CARE Condition: Good Instructions: Urinary Tract Infection in Women (ED) Additional Instructions: Patient has follow-up with primary care provider. Return to emergency department if any alarming signs or symptoms occur. Prescriptions: Ciprofloxacin HCl [Cipro] 500 mg PO Q12HR 10 Days tab Phenazopyridine [Pyridium] 200 mg PO TID #9 tablet Is patient prescribed a controlled substance at d/c from ED?: No When asked, does pt state using other controlled substances?: No If prescribed controlled substance>3 days was MAPS reviewed?: No If opioid is for acute pain is fill amount 7 days or less?: No If Rx opioid, was Start Talking consent form obtained?: No Referrals: None,Stated [Primary Care Provider] - 1-2 days
[2018-02-24 05:50] VITALS: BP 124/75; PULSE 88; TEMP 98
== END 2018-02-24 05:50 | disposition home or self-care (01) ==
LOC: EC 02:25
DX: N39.0 Urinary tract infection, site not specified (principal); F17.200 Nicotine dependence, unspecified, uncomplicated
CPT/HCPCS: 36415; 80053; 82150; 83690; 85025; 81001; 81025; 87040; 87086; 87077; 87186; 74176; 99285; 96374; 96375; 96361; J0696; J1885

== ENCOUNTER 2019-08-20 07:29 | Emergency (ER) | payer OTHER ==
[2019-08-20 07:38] VITALS: RESP 18; TEMP 98.6
[2019-08-20] MEDS ORDERED: ACETAMINOPHEN TAB 325 MG TAB PO STA (07:49)
--- NOTE | 2019-08-20 07:53 | ED ---
Abdominal Pain HPI - General Chief Complaint: Abdominal Pain Stated Complaint: poss UTI/19 wks preg Time Seen by Provider: 08/20/19 07:40 Source: patient, RN notes reviewed Mode of arrival: ambulatory Limitations: no limitations - History of Present Illness Initial Comments: 24-year-old female presents emergency Department chief complaint of lower abdomi nal pain, dysuria. Patient believes that she has urinary tract infection. Patient is A0 and currently [address] Barnes. Patient states she does have mild vaginal discharge but is normal white discharge denies any bleeding. Denies any cramping or contraction type pain. Patient denies any flank pain, fever or chills. She did have a sore back to days ago. - Related Data Home Medications Medication Instructions Recorded Confirmed Pnv,Calcium 72/Iron/Folic Acid 1 tab PO DAILY 08/20/19 08/20/19 [ Plus Tablet] Previous Rx's Medication Instructions Recorded Cephalexin [Keflex] 500 mg PO Q8HR #21 cap 08/20/19 Allergies Allergy/AdvReac Type Severity Reaction Status Date / Time No Known Allergies Allergy Verified 08/20/19 08:21 Review of Systems ROS Statement: Those systems with pertinent positive or pertinent negative responses have been documented in the HPI. ROS Other: All systems not noted in ROS Statement are negative. Past Medical History Past Medical History: No Reported History Additional Past Medical History / Comment(s): anxiety, depression History of Any Multi-Drug Resistant Organisms: None Reported Past Surgical History: No Surgical Hx Reported Additional Past Surgical History / Comment(s): Patient has had a D&C. Past Anesthesia/Blood Transfusion Reactions: No Reported Reaction Past Psychological History: No Psychological Hx Reported, Anxiety, Depression Smoking Status: Current every day smoker Past Alcohol Use History: None Reported Past Drug Use History: None Reported - Past Family History Mother Family Medical History: No Reported History General Exam Limitations: no limitations General appearance: alert, in no apparent distress Head exam: Present: atraumatic, normocephalic, normal inspection Eye exam: Present: normal appearance, PERRL, EOMI. Absent: scleral icterus, conjunctival injection, periorbital swelling ENT exam: Present: normal exam, normal oropharynx, mucous membranes moist Neck exam: Present: normal inspection, full ROM. Absent: tenderness, meningismus, lymphadenopathy Respiratory exam: Present: normal lung sounds bilaterally. Absent: respiratory distress, wheezes, rales, rhonchi, stridor Cardiovascular Exam: Present: regular rate, normal rhythm, normal heart sounds. Absent: systolic murmur, diastolic murmur, rubs, gallop, clicks GI/Abdominal exam: Present: soft, tenderness (Mild suprapubic), normal bowel sounds. Absent: distended, guarding, rebound, rigid Back exam: Absent: CVA tenderness (R), CVA tenderness (L) Course Vital Signs 08/20/19 07:34 Temperature 98.6 F Pulse Rate 111 H Respiratory 18 Rate Blood Pressure 134/78 Medical Decision Making - Medical Decision Making Urinalysis was obtained which shows evidence of urinary tract infection. Patient was given Rocephin 1 g IM in the emergency department. Patient be discharged on Keflex. Return parameters discussed. - Lab Data Lab Results 08/20/19 Range/Units 07:51 Urine Color Light Yellow Urine Appearance Cloudy H (Clear) Urine pH 6.5 (5.0-8.0) Ur Specific [place] 1.011 (1.001-1.035) Urine Protein 1+ H (Negative) Urine Glucose (UA) Negative (Negative) Urine Ketones Negative (Negative) Urine Blood Small H (Negative) Urine Nitrite Negative (Negative) Urine Bilirubin Negative (Negative) Urine Urobilinogen <2.0 (<2.0) mg/dL Ur Leukocyte Esterase Large H (Negative) Urine RBC 15 H (0-5) /hpf Urine WBC 157 H (0-5) /hpf Urine WBC Clumps Many H (None) /hpf Ur Squamous Epith Cells <1 (0-4) /hpf Urine Bacteria Rare H (None) /hpf Urine Mucus Rare H (None) /hpf Disposition Clinical Impression: UTI in Disposition: HOME SELF-CARE Condition: Stable Instructions (If sedation given, give patient instructions): Urinary Tract Infection in (ED) Additional Instructions: Please return to the Emergency Department if symptoms worsen or any other concerns. Prescriptions: Cephalexin [Keflex] 500 mg PO Q8HR #21 cap Is patient prescribed a controlled substance at d/c from ED?: No Referrals: None,Stated [Primary Care Provider] - 1-2 days Valerie Barnes DO [Doctor of Osteopathic Medicine] - 1-2 days Time of Disposition: 08:27
[2019-08-20 08:14] LABS: Appearance,Urine Cloudy (Clear); Bacteria,Urine Rare /hpf; Bilirubin,Urine Negative (Negative); Blood,Urine Small (Negative); Color,Urine Light Yellow; Glucose,Urine (UA) Negative (Negative); Ketones,Urine Negative (Negative); Leukocyte Esterase,Urine Large (Negative); Mucus,Urine Rare /hpf; Nitrite,Urine Negative (Negative); PH, Urine 6.5 (5.0-8.0); Protein,Urine 1+ (Negative); RBC,Urine 15 /hpf (0-5); Specific Gravity,Urine 1.011 (1.001-1.035); Squamous Epithelial Cell,Urine <1 /hpf (0-4); Urobilinogen,Urine <2.0 mg/dL (<2.0); WBC,Urine 157 /hpf (0-5)
[2019-08-20] MEDS ORDERED: cefTRIAXone 1,000 MG VIAL (IM USE) IM STA (08:24)
[2019-08-20 09:23] VITALS: BP 112/64; PULSE 84
== END 2019-08-20 09:41 | disposition home or self-care (01) ==
LOC: EC 07:29
DX: O23.42 Unspecified infection of urinary tract in pregnancy, second trimester (principal); O99.332 Smoking (tobacco) complicating pregnancy, second trimester; F17.200 Nicotine dependence, unspecified, uncomplicated; Z3A.19 19 weeks gestation of pregnancy
CPT/HCPCS: 81001; 87086; 87077; 87186; 96372; 99284; J0696; 96374

== ENCOUNTER 2019-12-16 09:02 | Emergency (ER) | payer OTHER ==
[2019-12-16 09:09] VITALS: BP 128/86; PULSE 116; RESP 18; TEMP 98.6
[2019-12-16] MEDS ORDERED: ACETAMINOPHEN TAB 500 MG TAB PO STA (09:22)
--- NOTE | 2019-12-16 09:35 | ED ---
URI HPI - General Chief Complaint: Upper Respiratory Infection Stated Complaint: 35wks preg, fever, cough Time Seen by Provider: 12/16/19 09:11 Source: patient, RN notes reviewed, old records reviewed Mode of arrival: ambulatory Limitations: no limitations - History of Present Illness Initial Comments: This Patient is a 24-year-old female who presents emergency department today for concern for sore throat, fever last night, cough. Patient is currently 35 weeks . Patient is a female. Patient denies any abdominal pain and vaginal bleeding or discharge. She reports no travel history. She states that she's been attempting to self or 19 due to recent state mandates. Patient reports that she's had no known exposure to anyone with a positive cocaine test. She reports her children have otherwise been well. Patient states that she has no chest pain. She reports it's and somewhat mucousy cough and feels like gas through radiation to her throat. She denies any other complaints. - Related Data Home Medications Medication Instructions Recorded Confirmed Pnv,Calcium 72/Iron/Folic Acid 1 tab PO DAILY 08/20/19 08/20/19 [ Plus Tablet] Previous Rx's Medication Instructions Recorded Cephalexin [Keflex] 500 mg PO Q8HR #21 cap 08/20/19 Acetaminophen [Tylenol] 500 mg PO Q4-6H PRN #20 tab 12/16/19 Azithromycin [Zithromax] 0 mg PO DIRECTED #6 tab 12/16/19 Allergies Allergy/AdvReac Type Severity Reaction Status Date / Time No Known Allergies Allergy Verified 12/16/19 09:09 Review of Systems ROS Statement: Those systems with pertinent positive or pertinent negative responses have been documented in the HPI. ROS Other: All systems not noted in ROS Statement are negative. Past Medical History Past Medical History: No Reported History Additional Past Medical History / Comment(s): anxiety, depression History of Any Multi-Drug Resistant Organisms: None Reported Past Surgical History: No Surgical Hx Reported Additional Past Surgical History / Comment(s): Patient has had a D&C. Past Anesthesia/Blood Transfusion Reactions: No Reported Reaction Past Psychological History: No Psychological Hx Reported, Anxiety, Depression Smoking Status: Current every day smoker Past Alcohol Use History: None Reported Past Drug Use History: None Reported - Past Family History Mother Family Medical History: No Reported History General Exam - General Exam Comments Initial Comments: 24-year-old female. Alert and oriented 3. Limitations: no limitations General appearance: alert, in no apparent distress Head exam: Present: atraumatic, normocephalic, normal inspection Eye exam: Present: normal appearance, PERRL, EOMI. Absent: scleral icterus, conjunctival injection, periorbital swelling ENT exam: Present: normal exam, mucous membranes moist Neck exam: Present: normal inspection. Absent: tenderness, meningismus, lymphadenopathy Respiratory exam: Present: normal lung sounds bilaterally, other (Patient has a wet sounding cough. Otherwise lungs are clear and lower lung field.). Absent: respiratory distress, wheezes, rales, rhonchi, stridor Cardiovascular Exam: Present: regular rate, normal rhythm, normal heart sounds. Absent: systolic murmur, diastolic murmur, rubs, gallop, clicks GI/Abdominal exam: Present: soft, normal bowel sounds, other (Temperature over abdomen consistent with 35 weeks . Patient has heart tones were noted to be 1 50 bpm.). Absent: distended, tenderness, guarding, rebound, rigid Extremities exam: Present: normal inspection, full ROM, normal capillary refill. Absent: tenderness, pedal edema, joint swelling, calf tenderness Back exam: Present: normal inspection Neurological exam: Present: alert, oriented X3, CN II-XII intact Psychiatric exam: Present: normal affect, normal mood Course Vital Signs 12/16/19 09:05 Temperature 98.6 F Pulse Rate 116 H Respiratory 18 Rate Blood Pressure 128/86 O2 Sat by Pulse 98 Oximetry Medical Decision Making - Medical Decision Making This patient's a 24-year-old female who presents today with fever and cough. Patient is currently 35 weeks . She has no travel history or exposure to known Covid contact. Patient was given Tylenol emergency department. There heart tones were obtained and 1 50 bpm. Patient has no abdominal pain or discharge. At this time discussed to avoid radiation will await chest x-ray at this time but otherwise treat the Patient for bronchitis with azithromycin to cover for atypical bacteria should've some a wet sounding cough. Discussed dosing Tylenol. I discussed she does not meet Covid swab criteria at this time but I did discuss that that still could be a possibility. I instructed the Patient to practice self quarentine for the next 14 days. Patient understands treatment plan will comply. Disposition Clinical Impression: Cough, Third trimester Disposition: HOME SELF-CARE Condition: Good Instructions (If sedation given, give patient instructions): Upper Respiratory Infection (ED) Additional Instructions: Please use medication as discussed. Patient should self quarentine for 14 days. Rest, remain hydrated. Use tylenol for fever or pain, and benadryl for congestion. Please follow up with family doctor if symptoms have not improved over the next two days. Please return to the emergency room if your symptoms increase or worsen or for any other concerns. Prescriptions: Acetaminophen [Tylenol] 500 mg PO Q4-6H PRN #20 tab PRN Reason: Fever Azithromycin [Zithromax] 0 mg PO DIRECTED #6 tab Is patient prescribed a controlled substance at d/c from ED?: No Referrals: None,Stated [Primary Care Provider] - 1-2 days Time of Disposition: 09:33
== END 2019-12-16 09:46 | disposition home or self-care (01) ==
LOC: EC 09:02
DX: O99.89 Other specified diseases and conditions complicating pregnancy, childbirth and the puerperium (principal); R05 Cough; R50.9 Fever, unspecified; O99.333 Smoking (tobacco) complicating pregnancy, third trimester; F17.200 Nicotine dependence, unspecified, uncomplicated; Z98.890 Other specified postprocedural states; Z3A.35 35 weeks gestation of pregnancy
CPT/HCPCS: 99283

== ENCOUNTER 2020-01-10 06:15 | Inpatient (IN) | payer OTHER ==
[2020-01-08 10:41] VITALS: BMI 28.3
[2020-01-18] MEDS ORDERED: METHYLERGONOVINE 0.2 MG/ML 1 ML AMP IM PRN (07:09)
[2020-01-18] MEDS ORDERED: OXYTOCIN 10 UNIT/ML 1 ML VIAL IM PRN (07:09)
[2020-01-18] MEDS ORDERED: CARBOPROST TROMETHAMINE 250 MCG/ML 1 ML AMP IM PRN (07:09)
[2020-01-18] MEDS ORDERED: TERBUTALINE 1 MG/ML VIAL SQ PRN (07:09)
[2020-01-18] MEDS ORDERED: LIDOCAINE 0.5% (PF) 5 MG/ML (50 ML SDV) SQ PRN (07:09)
[2020-01-18] MEDS ORDERED: OXYTOCIN 30 UNITS/500 ML NS 30 UNIT in SALINE 1 500ML.BAG IV SCH (07:15)
[2020-01-18 07:19] LABS: Basophils % (A) 0 %; Eosinophils # (A) 0.3 k/uL (0-0.7); Eosinophils % (A) 2 %; HCT 35.3 % (34.0-46.0); HGB 11.8 gm/dL (11.4-16.0); Lymphocytes # (A) 2.8 k/uL (1.0-4.8); Lymphocytes % (A) 21 %; MCH 30.4 pg (25.0-35.0); MCHC 33.4 g/dL (31.0-37.0); Mean Platelet Volume 8.9; Monocytes # (A) 0.8 k/uL (0-1.0); Monocytes % (A) 6 %; Neutrophils # (A) 9.6 k/uL (1.3-7.7); Neutrophils % (A) 70 %; Platelet Count 226 k/uL (150-450); RBC 3.88 m/uL (3.80-5.40); WBC 13.8 k/uL (3.8-10.6)
[2020-01-18] MEDS: LACTATED RINGERS 1,000 ML IV SCH ×2 (07:21→21:22)
--- NOTE | 2020-01-18 07:29 | P.HPOB ---
History of Present Illness H&P Date: 01/18/20 Chief Complaint: Induction of labor 24-year-old presents for induction of labor at 40 weeks and 3 days. Her cervix is 4 centers dilated, 70% effaced, -2 station. She is not connie. heart tones 140 with moderate variability and reactive. Review of Systems All systems: negative Constitutional: Denies chills, Denies fever Eyes: denies blurred vision, denies pain Ears, nose, mouth and throat: Denies headache, Denies sore throat Cardiovascular: Denies chest pain, Denies shortness of breath Respiratory: Denies cough Gastrointestinal: Denies abdominal pain, Denies diarrhea, Denies nausea, Denies vomiting Genitourinary: Denies dysuria, Denies hematuria Musculoskeletal: Denies myalgias Integumentary: Denies pruritus, Denies rash Neurological: Denies numbness, Denies weakness Psychiatric: Denies anxiety, Denies depression Endocrine: Denies fatigue, Denies weight change Past Medical History Past Medical History: No Reported History Additional Past Medical History / Comment(s): Obstetric history: She's had 3 vaginal deliveries and 1 elective termination. This is her fifth and she's had care with me since the second trimester. She did miss a few visits along the way. Blood type O positive, and antibodies negative, HIV non reactive, rubella immune, RPR nonreactive, hepatitis B-, toxoplasma negative, normal 1 hour, history of HSV but taking acyclovir, GBS negative. History of Any Multi-Drug Resistant Organisms: None Reported Past Surgical History: No Surgical Hx Reported Additional Past Surgical History / Comment(s): HX OF Past Anesthesia/Blood Transfusion Reactions: No Reported Reaction Past Psychological History: Anxiety, Depression Additional Psychological History / Comment(s): DENIES CURRENT PROBLEMS Smoking Status: Current every day smoker Past Alcohol Use History: None Reported Additional Past Alcohol Use History / Comment(s): SMOKES LESS THAN 1/2 PPD., STARTED SMOKING AGE 17. Past Drug Use History: None Reported - Past Family History Mother Family Medical History: No Reported History Medications and Allergies Home Medications Medication Instructions Recorded Confirmed Type Pnv No.95/Ferrous Fum/Folic AC 1 each PO DAILY 01/08/20 01/18/20 History [ Multivitamin Tablet] Allergies Allergy/AdvReac Type Severity Reaction Status Date / Time No Known Allergies Allergy Verified 01/18/20 07:06 Exam Osteopathic Statement: *. No significant issues noted on an osteopathic structural exam other than those noted in the History and Physical/Consult. Intake and Output 01/17/20 01/18/20 01/18/20 22:59 06:59 14:59 Other: Weight 72.575 kg Heart: Regular rate and rhythm Lungs: Clear to auscultation bilaterally Abdomen: Soft, nontender Extremities: Negative Homans sign Results Result Diagrams: 01/18/20 07:05 Abnormal Lab Results - Last 24 Hours (Table) 01/18/20 Range/Units 07:05 WBC 13.8 H (3.8-10.6) k/uL Neutrophils # 9.6 H (1.3-7.7) k/uL Assessment and Plan (1) Normal labor Current Visit: No Status: Acute Code(s): O80 - ENCOUNTER FOR FULL-TERM UNCOMPLICATED DELIVERY; Z37.9 - OUTCOME OF DELIVERY, UNSPECIFIED SNOMED Code(s): 88586215 Plan: 1. Induction of labor with amniotomy and Pitocin 2. Anticipate normal vaginal delivery
[2020-01-18] MEDS ORDERED: ROPIVACAINE 100 MG, fentaNYL (PF) 200 MCG in SODIUM CHLORIDE 0.9% 76 ML EPIDURAL ONE (09:04)
[2020-01-18 09:37] VITALS: RESP 16
[2020-01-18] MEDS ORDERED: BENZOCAINE/MENTHOL SPRAY 1 GM/SPRAY AEROSOL TOPICAL PRN (11:16)
[2020-01-18] MEDS ORDERED: ACETAMINOPHEN TAB 325 MG TAB PO PRN (11:16)
[2020-01-18] MEDS ORDERED: WITCH HAZEL 1 EACH MED..PAD TOPICAL PRN (11:16)
[2020-01-18] MEDS ORDERED: LANOLIN CREAM 5 GM TUBE TOPICAL PRN (11:16)
[2020-01-18] MEDS ORDERED: SIMETHICONE 80 MG CHEWABLE PO PRN (11:16)
[2020-01-18] MEDS ORDERED: diphenhydrAMINE 25 MG CAP PO PRN (11:16)
[2020-01-18] MEDS ORDERED: diphenhydrAMINE 50 MG CAP PO PRN (11:16)
[2020-01-18] MEDS ORDERED: HYDROCORTISONE 2.5% RECTAL CREAM 30 GM TUBE RECTAL PRN (11:16)
[2020-01-18] MEDS ORDERED: ZOLPIDEM 5 MG TAB PO PRN (11:16)
[2020-01-18] MEDS ORDERED: OXYTOCIN 20 UNITS/1000 ML NS 1,000 ML IV SCH (11:30)
[2020-01-18] MEDS ORDERED: NITROGLYCERIN 0.1MG/HR PATCH TRANSDERM ONE (14:00)
[2020-01-18] MEDS ORDERED: NICOTINE 14MG/24HR PATCH TRANSDERM STA (14:16)
[2020-01-18] MEDS: IBUPROFEN 600 MG TAB PO PRN (18:44)
--- NOTE | 2020-01-18 18:49 | P.PROBDLV ---
Vaginal Delivery Note - . Vaginal Delivery Note: 24-year-old presents for induction of labor at 40 weeks and 3 days. Her cervix is 4 centers dilated, 70% effaced, -2 station. She is not connie. heart tones 140 with moderate variability and reactive. Pitocin was started and amniotomy was performed at 7:13 AM clear fluid noted. She progressed about 5 cm and did get an epidural and was comfortable. Her cervix was completely dilated at 10:35 AM. She pushed, and delivered a viable male infant over intact perineum under epidural anesthesia at 10:44 AM. Head delivered OA, nuchal cord 1 easily reduced, anterior shoulder delivered gentle downward guidance followed by posterior shoulder and rest of body. Nose and mouth bulb suctioned, cord clamped and cut, infant placed mother's abdomen. Apgars 9, 10, weight 7 lbs. 5 oz. Placenta delivered easily, intact with three- vessel cord at 10:46 AM. Vagina, cervix, perineum inspected. No lacerations noted. Estimated blood loss 100 mL. Mother and baby in stable condition.
[2020-01-18] MEDS: SENNOSIDES-DOCUSATE SODIUM 1 EACH TAB PO SCH ×2 (21:20→21:35)
[2020-01-19] MEDS: IBUPROFEN 600 MG TAB PO PRN ×2 (00:39→07:25)
[2020-01-19 05:41] LABS: Basophils % (A) 0 %; Eosinophils # (A) 0.5 k/uL (0-0.7); Eosinophils % (A) 4 %; HCT 34.8 % (34.0-46.0); HGB 11.3 gm/dL (11.4-16.0); Lymphocytes % (A) 23 %; MCH 30.2 pg (25.0-35.0); MCHC 32.6 g/dL (31.0-37.0); MCV 92.7 fL (80.0-100.0); Mean Platelet Volume 8.7; Monocytes # (A) 0.7 k/uL (0-1.0); Monocytes % (A) 6 %; Neutrophils # (A) 8.3 k/uL (1.3-7.7); Neutrophils % (A) 66 %; Platelet Count 227 k/uL (150-450); RBC 3.75 m/uL (3.80-5.40); RDW 14.1 % (11.5-15.5); WBC 12.7 k/uL (3.8-10.6)
[2020-01-19] MEDS: SENNOSIDES-DOCUSATE SODIUM 1 EACH TAB PO SCH (07:25)
--- NOTE | 2020-01-19 07:57 | P.DS ---
Providers Date of admission: 01/18/20 06:53 Expected date of discharge: 01/19/20 Attending physician: Valerie Barnes Primary care physician: Stated None - Discharge Diagnosis(es) (1) Normal labor Current Visit: No Status: Resolved (2) Normal vaginal delivery Current Visit: No Status: Acute Hospital Course: Patient presented for induction of labor. She underwent a normal vaginal delivery. course was uncomplicated. She'll be discharged home day #1 in stable condition to follow-up with me in 6 weeks. Plan - Discharge Summary Discharge Rx Participant: Yes New Discharge Prescriptions: New Ibuprofen [Motrin] 600 mg PO Q6HR PRN #30 tab PRN Reason: Mild Pain Or Fever >= 100.5 No Action Pnv No.95/Ferrous Fum/Folic AC [ Multivitamin Tablet] 1 each PO DAILY Discharge Medication List Pnv No.95/Ferrous Fum/Folic AC [ Multivitamin Tablet] 1 each PO DAILY 01/08/20 [History] Ibuprofen [Motrin] 600 mg PO Q6HR PRN #30 tab 01/19/20 [Rx] Follow up Appointment(s)/Referral(s): Valerie Barnes DO [Doctor of Osteopathic Medicine] - 6 Weeks Discharge Disposition: HOME SELF-CARE
[2020-01-19 09:32] VITALS: BP 112/67; PULSE 72; TEMP 97.8
== END 2020-01-19 11:50 | disposition home or self-care (01) | DRG 807 ==
LOC: 4FBP 01-18 06:53
PROVIDERS: ADMIT Obstetrics & Gynecology; ATTEND Obstetrics & Gynecology
PROC: 3E033VJ Introduction of Other Hormone into Peripheral Vein, Percutaneous Approach (ICD-10-PCS; principal; 2020-01-18)
PROC: 3E0R3BZ Introduction of Anesthetic Agent into Spinal Canal, Percutaneous Approach (ICD-10-PCS; principal; 2020-01-18)
PROC: 10E0XZZ Delivery of Products of Conception, External Approach (ICD-10-PCS; principal; 2020-01-18)
PROC: 00HU33Z Insertion of Infusion Device into Spinal Canal, Percutaneous Approach (ICD-10-PCS; principal; 2020-01-18)
PROC: 10907ZC Drainage of Amniotic Fluid, Therapeutic from Products of Conception, Via Natural or Artificial Opening (ICD-10-PCS; principal; 2020-01-18)
DX: O69.81X0 Labor and delivery complicated by cord around neck, without compression, not applicable or unspecified (principal); Z37.0 Single live birth; O99.334 Smoking (tobacco) complicating childbirth; F17.210 Nicotine dependence, cigarettes, uncomplicated; O99.62 Diseases of the digestive system complicating childbirth; K21.9 Gastro-esophageal reflux disease without esophagitis; Z3A.40 40 weeks gestation of pregnancy; Z86.59 Personal history of other mental and behavioral disorders
CPT/HCPCS: 85025; 86850; 86900; 86901

== ENCOUNTER 2020-06-11 14:00 | Emergency (ER) | payer OTHER ==
[2020-06-11 14:07] VITALS: BP 119/70; PULSE 111; RESP 20; TEMP 98.1
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
--- NOTE | 2020-06-11 15:17 | XR ---
EXAMINATION TYPE: XR knee complete LT DATE OF EXAM: 06/11/2020 COMPARISON: None HISTORY: Pain TECHNIQUE: Three-view left knee FINDINGS: Joint spaces are preserved. No acute fractures or dislocations are evident. No joint effusi on is evident. Soft tissues are normal. Follow-up studies can be performed 7-10 days from acute trauma for continued pain. IMPRESSION: 1. Normal three-view left knee
[2020-06-11] MEDS ORDERED: ACETAMINOPHEN TAB 325 MG TAB PO STA (15:35)
== END 2020-06-11 15:58 | disposition home or self-care (01) ==
LOC: EC 14:00
DX: S80.02XA Contusion of left knee, initial encounter (principal); S00.83XA Contusion of other part of head, initial encounter; S80.212A Abrasion, left knee, initial encounter; F17.200 Nicotine dependence, unspecified, uncomplicated; Y04.0XXA Assault by unarmed brawl or fight, initial encounter
CPT/HCPCS: 70450; 70486; 72125; 99284

== ENCOUNTER 2020-07-01 18:45 | Emergency (ER) | payer OTHER ==
[2020-07-01 18:57] VITALS: BP 115/73; PULSE 52; RESP 18; TEMP 97
--- NOTE | 2020-07-01 19:30 | ED ---
General Adult HPI - General Chief complaint: Skin/Abscess/Foreign Body Stated complaint: rash on feet Time Seen by Provider: 07/01/20 19:08 Source: patient, RN notes reviewed Mode of arrival: ambulatory Limitations: no limitations - History of Present Illness Initial comments: 25-year-old female with a chief complaint of rash [facility] chief [facility] of [facility]. Patient reports that she has a rash on her bilateral feet. States that his been there for about 1.5 weeks. Patient states she saw [facility] emergency room about a week ago and thought it may be ALLERGIC reaction. Patient has been taking Benadryl without relief. He reports it is itchy. States this started as small bumps sometimes turns into scabs. States it is only on the top of her feet and ankles. Denies any rash on the soles of the feet. Denies any rash elsewhere on the body. Denies fevers or chills. Patient reports that her daughter also developed this rash on 1 foot.Patient has no other complaints at this time including shortness of breath, chest pain, abdominal pain, nausea or vomiting, headache, or visual changes. - Related Data Home Medications Medication Instructions Recorded Confirmed Pnv No.95/Ferrous Fum/Folic AC 1 each PO DAILY 01/08/20 01/18/20 [ Multivitamin Tablet] Previous Rx's Medication Instructions Recorded Ibuprofen [Motrin] 600 mg PO Q6HR PRN #30 tab 01/19/20 Hydrocortisone Cream 1 applic TOPICAL TID 7 Days #20 gm 07/01/20 [Hydrocortisone 1% Cream] hydrOXYzine HCL [Atarax] 25 mg PO TID PRN #20 tab 07/01/20 Allergies Allergy/AdvReac Type Severity Reaction Status Date / Time No Known Allergies Allergy Verified 07/01/20 18:57 Review of Systems ROS Statement: Those systems with pertinent positive or pertinent negative responses have been documented in the HPI. ROS Other: All systems not noted in ROS Statement are negative. Past Medical History Past Medical History: No Reported History Additional Past Medical History / Comment(s): Obstetric history: She's had 3 vaginal deliveries and 1 elective termination. This is her fifth and she's had care with me since the second trimester. She did miss a few visits along the way. Blood type O positive, and antibodies negative, HIV nonreactive, rubella immune, RPR nonreactive, hepatitis B-, toxoplasma negative, normal 1 hour, history of HSV but taking acyclovir, GBS negative. History of Any Multi-Drug Resistant Organisms: None Reported Past Surgical History: No Surgical Hx Reported Additional Past Surgical History / Comment(s): HX OF Past Anesthesia/Blood Transfusion Reactions: No Reported Reaction Past Psychological History: Anxiety, Depression Smoking Status: Current every day smoker Past Alcohol Use History: Occasional Past Drug Use History: None Reported - Past Family History Mother Family Medical History: No Reported History General Exam Limitations: no limitations General appearance: alert, in no apparent distress Head exam: Present: atraumatic, normocephalic, normal inspection Eye exam: Present: normal appearance, PERRL, EOMI. Absent: scleral icterus, conjunctival injection, periorbital swelling ENT exam: Present: normal exam, mucous membranes moist Neck exam: Present: normal inspection, full ROM. Absent: tenderness, meningi smus, lymphadenopathy Respiratory exam: Present: normal lung sounds bilaterally. Absent: respiratory distress, wheezes, rales, rhonchi, stridor Cardiovascular Exam: Present: regular rate, normal rhythm, normal heart sounds. Absent: systolic murmur, diastolic murmur, rubs, gallop, clicks GI/Abdominal exam: Present: soft, normal bowel sounds. Absent: distended, tenderness, guarding, rebound, rigid Skin exam: Present: rash (Patient has a small papular rash noted to the dorsum of the feet and posterior ankle bilaterally. Small crusts noted. No drainage. No tracking lesions. No lesions in between the toes or on the soles. No lesions elsewhere on patient) Course Vital Signs 07/01/20 18:53 Temperature 97 F L Pulse Rate 52 L Respiratory 18 Rate Blood Pressure 115/73 O2 Sat by Pulse 100 Oximetry Medical Decision Making - Medical Decision Making Patient presents with rash. HPI and physical exam as documented. Patient is afebrile, no constitutional symptoms. Rash is pruritic in nature and contained to the dorsum of the feet and ankles. At this time we will attempt to treat patient with topical steroid and referred to dermatology. If patient has wo rsening symptoms she is aware to return here to the emergency room. I discussed this case with attending Dr. Carlson who agrees with this assessment and treatment plan. Disposition Clinical Impression: Rash Disposition: HOME SELF-CARE Condition: Good Instructions (If sedation given, give patient instructions): Acute Rash (ED) Additional Instructions: Please use steroid as directed. Please follow-up with your doctor in one to 2 days. If you have any worsening symptoms return to the emergency room. Prescriptions: hydrOXYzine HCL [Atarax] 25 mg PO TID PRN #20 tab PRN Reason: Itching Hydrocortisone Cream [Hydrocortisone 1% Cream] 1 applic TOPICAL TID 7 Days #20 gm Is patient prescribed a controlled substance at d/c from ED?: No Referrals: Yobany Murdock MD [STAFF PHYSICIAN] - 1-2 days Zoey Bill MD [STAFF PHYSICIAN] - 1-2 days Time of Disposition: 19:28
== END 2020-07-01 19:47 | disposition home or self-care (01) ==
LOC: EC 18:45
DX: R21 Rash and other nonspecific skin eruption (principal); L29.8 Other pruritus; F17.200 Nicotine dependence, unspecified, uncomplicated
CPT/HCPCS: 99282